=== PATIENT | male | born 1955 | race Caucasian/White ===

== ENCOUNTER 2017-01-26 06:36 | Day surgery (SDC) | payer OTHER ==
--- NOTE | ~2017-01-26 | OP ---
Record Of Operation [facility] [address] [place]. [address] NAME: SARAH SY : 51 STATUS : [facility]#: [id number] AGE: 61 ADM/REG DATE : 01/26/17 MR#: [id number] REPORT SERV DATE: 01/30/17 DICTATED BY: MANDY SCHMITT DATE: 01/30/17 REPORT STATUS : Draft TRANSCRIBED BY: MODL DATE: 01/30/17 DATE OF PROCEDURE: 01/26/2017 PREOPERATIVE DIAGNOSIS: Chronic mesenteric ischemia. POSTOPERATIVE DIAGNOSIS: Chronic mesenteric ischemia. PROCEDURES: 1. Ultrasound-guided percutaneous access, right common femoral artery. 2. Abdominal aortogram. 3. Selective catheterization of the celiac and superior mesenteric arteries with celiac and superior mesenteric artery arteriogram. 4. Stent placement in the celiac artery (6 mm x 27 mm Visi-Pro). 5. Stent placement in the superior mesenteric artery (6 mm x 37 mm Express stent). ANESTHESIA: Local with MAC. ESTIMATED BLOOD LOSS: 20 mL. CONTRAST: 95 mL. IV FLUIDS: 400 mL. COMPLICATIONS: None. INDICATIONS: Mr. Sy is a pleasant 61-year-old man with systemic atherosclerotic disease. 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 He is recommended for arteriogram with percutaneous revascularization if possible. DETAILS OF PROCEDURE: After informed consent was obtained, the patient was brought to the endovascular suite and placed in supine position. After administration of IV sedation, he was prepped and draped in usual sterile fashion. A time-out was performed. I commenced the procedure with ultrasound-guided percutaneous access of the right common femoral artery. This was done after anesthetizing the right groin with local anesthetic. Permanent image of the artery documenting patency was saved and stored in the patient's chart. I accessed with a micropuncture needle, passed a micropuncture wire, and confirmed intra-arterial under fluoroscopy. I then placed a micropuncture sheath. I then upsized to a 5-Chinese sheath over a Bentson wire. I advanced the Bentson wire and [place] flush catheter into the abdominal aorta. Abdominal aortogram was performed, which showed the infrarenal aorta to be patent, but no stenosis or aneurysmal disease. There was severe calcific atherosclerotic disease throughout the infrarenal aorta and the bilateral common iliac arteries. There are dual renal arteries on the right, which were patent with no stenosis. On the left, there was a single renal artery, which was patent with no stenosis. After that, we moved into a lateral projection performed nonselective mesenteric arteriogram. This shows patent celiac with near occlusive stenosis at the origin. The origin of the superior mesenteric artery Record Of Operation [facility] [address] [place]. [address] NAME: SARAH SY : 51 STATUS : [facility]#: [id number] AGE: 61 ADM/REG DATE : 01/26/17 MR#: [id number] REPORT SERV DATE: 01/30/17 DICTATED BY: MANDY SCHMITT. DATE: 01/30/17 REPORT STATUS : Draft TRANSCRIBED BY: VICKIE DATE: 01/30/17 was patent. However, about 0.5 cm beyond the origin, there was an 80% stenosis that was about 25 mm in length. After that, we systemically heparinized. I exchanged the 5-Chinese sheath for a 6.5-Chinese TourGuide sheath. I cannulated the superior mesenteric artery with a Glidewire. I then exchanged for a Back wire. I then performed balloon angioplasty in the superior mesenteric artery with a 5 mm balloon. Repeat contrast injection shows significant residual stenosis. As a result, a 6 mm x 37 mm Express stent was placed. This was deployed in the superior mesenteric artery without difficulty. Repeat contrast injection shows superior mesenteric artery to be widely patent with no residual stenosis and good flow distally. I then used the TourGuide and the Glidewire to engage the celiac. There was a high-grade stenosis. Primary stent placement was undertaken the celiac. This was a 6 mm x 27 mm Visi-Pro stent. Repeat contrast injection showed the artery now to be widely patent with no residual stenosis and good flow distally. After that, wires and catheters were removed. Right femoral artery arteriogram shows a puncture site in the mid common femoral artery. ProGlide closure device was deployed for hemostasis. The patient tolerated the procedure well with no complications. JOHN/VICKIE Mandy Schmitt M.D. / [id number] CC: Arron Fox DO
[~2017-01-26 06:36] MED LIST: HALF81 PO; LIPITOR40 PO; LOP25 PO; PCET PO
[2017-01-26] MEDS ORDERED: PLAVIX PO (13:05)
== END 2017-01-26 17:02 | disposition home or self-care (01) ==
LOC: SDC 06:36 → SSU1 10:58
PROVIDERS: Surgery
PROC: B414ZZZ Fluoroscopy of Superior Mesenteric Artery (ICD-10-PCS; principal; 2017-01-26 08:15)
PROC: B41BZZZ Fluoroscopy of Other Intra-Abdominal Arteries (ICD-10-PCS; 2017-01-26 08:15)
PROC: 04713DZ Dilation of Celiac Artery with Intraluminal Device, Percutaneous Approach (ICD-10-PCS; 2017-01-26 08:15)
PROC: 04753DZ Dilation of Superior Mesenteric Artery with Intraluminal Device, Percutaneous Approach (ICD-10-PCS; 2017-01-26 08:15)
DX: K55.1 Chronic vascular disorders of intestine (principal); I10 Essential (primary) hypertension; I73.9 Peripheral vascular disease, unspecified; E78.00 Pure hypercholesterolemia, unspecified; E16.2 Hypoglycemia, unspecified; Z98.890 Other specified postprocedural states; Z87.891 Personal history of nicotine dependence; Z79.82 Long term (current) use of aspirin; Z79.899 Other long term (current) drug therapy; Z97.2 Presence of dental prosthetic device (complete) (partial); Z87.81 Personal history of (healed) traumatic fracture; Z86.19 Personal history of other infectious and parasitic diseases
CPT/HCPCS: 36245; 37236; 37237; 75625; 76937; 82962; 93005; A9270-GY; C1725; C1760; C1769; C1876; C1893; C1894; J0690; J2250; J2405; J3010; Q9966